=== PATIENT | male | born 1995 | race African-American/Black ===

== ENCOUNTER 2017-07-27 06:28 | Emergency (ER) | payer MEDICAID ==
[~2017-07-27] VITALS: Ht 180.3 cm; Wt 75.0 kg
[~2017-07-27 06:28] MED LIST: ALBU25PO2
[2017-07-27] MEDS ORDERED: ALBUTEROL (0.083%) 2.5MG/3ML NEB HHN STA (06:42)
[2017-07-27] MEDS ORDERED: METHYLPREDNISOLONE SOD SUCC 125 MG/2 ML VIAL IV STA (06:42)
[2017-07-27] MEDS ORDERED: IPRATROPIUM BROMIDE (0.02%) 0.5MG/2.5ML NEB HHN STA (06:42)
[2017-07-27 08:48] VITALS: BP 114/66
== END 2017-07-27 09:29 | disposition home or self-care (01) ==
LOC: ER 08:23
DX: J45.901 Unspecified asthma with (acute) exacerbation (principal)
CPT/HCPCS: 71010; 94644; 96374; 99285; J2930; J7040; J7611; Z7610; 94640

== ENCOUNTER 2018-01-05 21:00 | Emergency (ER) | payer MEDICAID ==
[~2018-01-05] VITALS: Ht 175.3 cm; Wt 73.7 kg
[2018-01-06] MEDS ORDERED: ALBUTEROL (0.083%) 2.5MG/3ML NEB HHN STA (00:11)
[2018-01-06] MEDS ORDERED: IPRATROPIUM BROMIDE (0.02%) 0.5MG/2.5ML NEB HHN STA (00:11)
[2018-01-06] MEDS ORDERED: PREDNISONE 20MG TABLET PO STA (00:11)
[2018-01-06 01:44] VITALS: BP 119/60
== END 2018-01-06 01:47 | disposition home or self-care (01) ==
LOC: ER 21:00
DX: J45.901 Unspecified asthma with (acute) exacerbation (principal); Z87.891 Personal history of nicotine dependence
CPT/HCPCS: 71045; 87804; 93005; 94640; 99285; J7512; J7611